=== PATIENT | female | born 1955 | race Caucasian/White ===

== ENCOUNTER → 2016-09-26 | Outpatient (CLI) | payer OTHER, BC ==
[~2016-09-26] VITALS: Ht 167.6 cm; Wt 84.8 kg
[~2016-09-26] MED LIST: ALPRAZOLAM 0.0.25 M1 PO; CENTRUM SILVER1 EAC4 PO; COQ-10100 MG PO; FISH OIL 1,001000 M2 PO; KLOR-CON 1010 MEQ PO; LASIX 20 MG TAB20 MG PO; LEVOTHYROXIN0.025 MG PO; LISINOPRIL5 MG PO; MAGOX 400400 MG PO; MAXALT MLT ODT10 M1 PO; MIRAPEX 0.250.25 M1 PO; OMEPRAZOLE 20 M20 M1 PO; PROBIOTIC1 EAC1 PO; TRAMADOL 50 MG50 MG PO; VENLAFAXINE HC150 M1 PO; VITAMIN B-12500 MCG PO; VITAMIN D3400 UNIT PO; VITAMIN E400 UNIT PO; ZANAFLEX4 MG PO
--- NOTE | ~2016-09-26 | HPC ---
[facility] [address] [place] [address] PAIN MANAGEMENT CONSULTATION Name: SORAIDA FERNANDEZ JANESSA Room #: REG VALENTÍN FlemingTimMariel.#: [id number] Admission: 09/26/16 Attend Phys: Hammad Brothers DO Discharge: Date of : 59 Report #: [id number] THIS REPORT FOR: //name// CC: Marion Brothers DATE OF SERVICE: 09/26/2016 PRIMARY CARE PHYSICIAN: Marion Pinedo M.D. CHIEF COMPLAINT: "Pain in the neck with numbness and weakness down in my left arm". HISTORY OF PRESENT ILLNESS: The patient is a 61-year-old female who has been seen in the pain clinic because of pain in the neck, right shoulder, arm and some headache pain. She has had problems with her neck in the past. She has been suffering since 1999. She describes it as an ongoing soreness all over. She has been diagnosed with fibromyalgia. She also has neuropathy in her feet, has sulh-sd-oenz pain in her knees and has noted worsening of her pain when weather changes, when her activities increase and when she does not get enough rest. Pain is made better with rest and pain medications. She describes it as continuous, burning, aching, throbbing, sharp, stabbing and tender. She rates it as a 7/10 on most days. 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 She notes decreased sensation to light touch in the forearm area. DICTATION ENDS HERE. By: [id number] Bibiana Shah MD /nt
[2016-09-26 09:15] VITALS: BP 153/93
== END ==
LOC: PAIN 09-24 14:04
DX: M54.2 Cervicalgia (principal); R53.1 Weakness; R20.0 Anesthesia of skin